=== PATIENT | male | born 1995 | race Caucasian/White ===

== ENCOUNTER 2016-10-22 16:31 | Outpatient (CLI) | payer OTHER ==
--- NOTE | 2016-10-22 17:05 | DIAGNOSTIC IMAGING REPORT ---
PROCEDURE: XR CHEST 2 VIEW INDICATION: CHRONIC SINUSITIS TECHNIQUE: PA and lateral views. COMPARISON: Chest 07/07/2016 FINDINGS: Lungs are clear. Heart and mediastinum are normal. Thorax is normal. IMPRESSION: 1. Negative chest.
--- NOTE | 2016-10-22 17:06 | DIAGNOSTIC IMAGING REPORT ---
PROCEDURE: XR SINUSES LESS THAN 3 VIEWS INDICATION: CHRONIC SINUSITIS TECHNIQUE: Single harris view. COMPARISON: Chest 10/22/16 FINDINGS: Paranasal sinuses are clear. IMPRESSION: 1. Normal sinuses.
--- NOTE | 2016-10-22 17:06 | DIAGNOSTIC IMAGING REPORT ---
PROCEDURE: XR SINUSES LESS THAN 3 VIEWS INDICATION: CHRONIC SINUSITIS TECHNIQUE: Single harris view. COMPARISON: Chest 10/22/16 FINDINGS: Paranasal sinuses are clear. IMPRESSION: 1. Normal sinuses.
== END 2016-10-22 23:00 ==
LOC: XR SRH 16:31
DX: J32.9 Chronic sinusitis, unspecified (principal); R63.4 Abnormal weight loss; R10.9 Unspecified abdominal pain
CPT/HCPCS: 90074; 90100; 95059; 98370